=== PATIENT | male | born 1990 | race Caucasian/White ===

== ENCOUNTER 2020-04-10 20:37 | Emergency (ER) | payer SELFPAY ==
[~2020-04-10] VITALS: Ht 170.2 cm; Wt 70.3 kg
[2020-04-10] MEDS ORDERED: HYDROcodone/Acetamin 5/325 tab ORAL ONE (21:00)
[2020-04-10] MEDS ORDERED: Lidocaine 1% Plain 30 ml INJ ONE (21:00)
[2020-04-10] MEDS ORDERED: Bactrim-DS 1 tab ORAL ONE (21:00)
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
[2020-04-10 21:21] VITALS: BP 120/76
[2020-04-10] MEDS ORDERED: BACTRIM DS TAB1 EAC1 ORAL (21:24)
[2020-04-10] MEDS ORDERED: HYDROCODON-ACE1 EA15 ORAL (21:24)
--- NOTE | 2020-04-10 21:25 | NUR ---
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 I informed him that he could leave, and that he was discharged. The patient refused to leave and called me several inappropriate terms, security was called and ER staff escorted patient out
--- NOTE | 2020-04-10 21:30 | NUR ---
ER DISCHARGE NOTE: Patient is cleared to be discharged per ERMD, pt is aox4, on room air, with stable vital signs. pt refused discharge paperwork and prescriptions, pt id band removed without complications. pt is able to ambulate with steady gait. pt took all belongings.
== END 2020-04-10 21:30 | disposition home or self-care (01) ==
LOC: EDBD 20:37 → EMR 21:00
DX: L02.31 Cutaneous abscess of buttock (principal); L98.491 Non-pressure chronic ulcer of skin of other sites limited to breakdown of skin; F17.200 Nicotine dependence, unspecified, uncomplicated; Z59.0 Homelessness; W45.8XXA Other foreign body or object entering through skin, initial encounter; Y93.9 Activity, unspecified; Y92.9 Unspecified place or not applicable
CPT/HCPCS: 10060; 99283; J2001